=== PATIENT | female | born 1955 | race Caucasian/White ===

== ENCOUNTER 2018-03-06 15:24 | Observation (INO) | payer OTHER ==
--- NOTE | 2018-03-06 16:10 | ED ---
HPI Chest Pain - HPI Summary HPI Summary: This patient is a 62 year old F presenting to [facility] accompanied by a woman with a chief complaint of intermittent left-sided, pressure CP radiating to the left shoulder since yesterday. The patient rates the pain 8/10 in severity. Patient reports nausea, MALLOY, pain with breathing, cough, and increased need for sleep. Patient denies vomiting. PMHX diabetic, HLD. No PMHx cardiac problems, HTN. FHX cardiac problems. - History of Current Complaint Chief Complaint: EDChestPainROMI Time Seen by Provider: 03/06/18 15:45 Hx Obtained From: Patient Onset/Duration: Started Days Ago - 1 Timing: Intermittent, Lasting Hours - 2 Initial Severity: Moderate Current Severity: Moderate Pain Intensity: 8 Pain Scale Used: 0-10 Numeric Chest Pain Location: Mid Sternal, Left Anterior Chest Pain Radiates To:: Shoulder Character: Crushing Associated Signs and Symptoms: Positive: Chest Pain, Headaches, Shortness of Breath, Nausea, Nonproductive Cough. Negative: Vomiting - Allergy/Home Medications Allergies/Adverse Reactions: Allergies Allergy/AdvReac Type Severity Reaction Status Date / Time butorphanol [From Stadol] Allergy Airway Verified 03/06/18 16:42 Obstruction meperidine [From Demerol] Allergy Unknown Verified 03/06/18 16:42 Reaction Details prochlorperazine Allergy Shakes Verified 03/06/18 16:42 [From Compazine] sumatriptan [From Imitrex] Allergy Airway Verified 03/06/18 16:42 Obstruction Home Medications: Home Medications Insulin Glargine,Hum.rec.anlog [Lantus Solostar 5x3 ML PENS] 20 units SUBCUT BEDTIME 03/06/18 [History Confirmed 03/06/18] Lactobacillus Acidophilus [Probiotic Acidophilus] 1 each PO DAILY 03/06/18 [ History Confirmed 03/06/18] Omeprazole 20 mg PO DAILY 03/06/18 [History Confirmed 03/06/18] Pioglitazone HCl/Metformin HCl [Pioglitazone-Metformin 15-500] 1 tab PO BID 08/17 [History Confirmed 03/06/18] PMH/Surg Hx/FS Hx/Imm Hx Endocrine/Hematology History: Reports: Hx Diabetes GI History: Reports: Hx Gastroesophageal Reflux Disease - Surgical History Surgery Procedure, Year, and Place: cholecystectomy, hysterectomy, cervical fusion Infectious Disease History: No Infectious Disease History: Denies: Traveled Outside the [place] in Last 30 Days - Family History Known Family History: Positive: Cardiac Disease - Social History Alcohol Use: None Substance Use Type: Reports: None Smoking Status (MU): Never Smoked Tobacco Review of Systems Positive: Chest Pain - left, radiating to shoulder Positive: Shortness Of Breath, Cough Positive: Nausea. Negative: Vomiting Neurological: Other - increased need for sleep Positive: Headache All Other Systems Reviewed And Are Negative: Yes Physical Exam - Summary Physical Exam Summary: VITAL SIGNS: Reviewed. GENERAL: Patient is a well-developed and nourished female who is lying comfortable in the stretcher. Patient is not in any acute respiratory distress. HEAD AND FACE: No signs of trauma. No ecchymosis, hematomas or skull depressions. No sinus tenderness. EYES: PERRLA, EOMI x 2, No injected conjunctiva, no nystagmus. EARS: Hearing grossly intact. Ear canals and tympanic membranes are within normal limits. MOUTH: Oropharynx within normal limits. NECK: Supple, trachea is midline, no adenopathy, no JVD, no carotid bruit, no c- spine tenderness, neck with full ROM. CHEST: Symmetric, no tenderness at palpation LUNGS: Clear to auscultation bilaterally. No wheezing or crackles. CVS: Regular rate and rhythm, S1 and S2 present, no murmurs or gallops appreciated. ABDOMEN: Soft, non-tender. No signs of distention. No rebound no guarding, and no masses palpated. Bowel sounds are normal. EXTREMITIES: FROM in all major joints, no edema, no cyanosis or clubbing. NEURO: Alert and oriented x 3. No acute neurological deficits. Speech is normal and follows commands. SKIN: Dry and warm GCS: 15 Triage Information Reviewed: Yes Vital Signs On Initial Exam: Initial Vitals Temp Pulse Resp BP Pulse Ox 97.6 F 81 14 157/88 98 03/06/18 15:34 03/06/18 15:34 03/06/18 15:34 03/06/18 15:34 03/06/18 15:34 Vital Signs Reviewed: Yes Diagnostics - Vital Signs Vital Signs Temp Pulse Resp BP Pulse Ox 03/06/18 15:34 97.6 F 81 14 157/88 98 - Laboratory Result Diagrams: 03/06/18 16:36 03/06/18 16:36 Lab Statement: Any lab studies that have been ordered have been reviewed, and results considered in the medical decision making process. - Radiology CXR Radiology Interpretation Completed By: Radiologist Summary of Radiographic Findings: QUESTIONABLE APPEARANCE OF INNUMERABLE PUNCTATE PULMONARY NODULES CAN BE SEEN IN THE. SETTING OF SARCOID. ALTERNATIVELY THIS APPEARANCE COULD BE DUE TO MILD VASCULAR. CONGESTION. ED physician has reviewed this report - EKG 15:38 Cardiac Rate: NL - 67 bpm EKG Rhythm: Sinus Rhythm ST Segment: Normal 18:35 Cardiac Rate: NL - 93 bpm EKG Rhythm: Sinus Rhythm ST Segment: Normal Chest Pain Course/Dx - Course Assessment/Plan: This patient is a 62 year old F presenting to [facility] accompanied by a woman with a chief complaint of intermittent left-sided, pressure CP radiating to the left shoulder since yesterday. The patient rates the pain 8/10 in severity. Patient reports nausea, MALLOY, pain with breathing, cough, and increased need for sleep. Patient denies vomiting. PMHX diabetic, HLD. No PMHx cardiac problems, HTN. FHX cardiac problems. Blood work without any significant abnormality except for potassium level 3.3 which the patient was given potassium chloride. Glucose was 247 for which the patient was given IV fluids. Troponin is 0.00. Urinalysis is negative for UTI. In the ED course the patient was given aspirin, Lopressor, nitroglycerin. The patient reported that she had another episode of chest pain which we did a second EKG but she doesnt have any ST elevations and unchanged from previous EKG. Therefore I discussed the case with Dr. Rodriguez from the hospital services and she accepted the patient for admission. Patient is hemodynamically stable alert and oriented 3. - Chest Pain Differential Diagnosis/HQI/PQRI: Acute IA, ACS, Angina, CHF, Chest Wall, GI Disease - Diagnoses Provider Diagnoses: Chest pain - Provider Notifications Discussed Care Of Patient With: Olinda Rodriguez Time Discussed With Above Provider: 18:02 Instructed by Provider To: Admit As Inpatient Discharge - Sign-Out/Discharge Documenting (check all that apply): Patient Departure - admission - Discharge Plan Condition: Fair Disposition: ADMITTED TO [facility] Referrals: [facility] [Outside] - Billing Disposition and Condition Condition: FAIR Disposition: Admitted to [facility] - Attestation Statements Document Initiated by Scribe: Yes Documenting Scribe: Aamir Barros Provider For Whom Khrisibe is Documenting (Include Credential): Jorge Mcdaniels MD Scribe Attestation: I, Aamir Barros, scribed for Jorge Mcdaniels MD on 03/06/18 at 1856. Scribe Documentation Reviewed: Yes Provider Attestation: The documentation as recorded by the scribe, Aamir Barros accurately reflects the service I personally performed and the decisions made by me, Jorge Mcdaniels MD Status of Scribe Document: Viewed
[2018-03-06 16:49] LABS: Urine Appearance Clear; Urine Bilirubin Negative (Negative); Urine Blood Negative (Negative); Urine Color Yellow; Urine Glucose 3+(>=500 mg/dL) (Negative); Urine Ketones Trace (Negative); Urine Nitrite Negative (Negative); Urine Protein Negative (Negative); Urine Urobilinogen Negative (Negative)
[2018-03-06 16:58] LABS: ABS Basophils 0.1 10^3/ul (0-0.2); ABS Eosinophils 0 10^3/ul (0-0.6); ABS Lymphocytes 3.2 10^3/ul (1.0-4.8); ABS Monocytes 0.8 10^3/ul (0-0.8); ABS Neutrophils 4.3 10^3/ul (1.5-7.7); ABS Nucleated RBC 0 10^3/ul; Eosinophil % 0.5 %; Hematocrit 46 % (35-47); Hemoglobin 15.8 g/dl (12.0-16.0); Lymphocyte % 38.3 %; Mean Corpuscular HGB Conc 34 g/dl (31-36); Mean Corpuscular Hemoglobin 32 pg (27-31); Mean Corpuscular Volume 93 fL (80-97); Mean Platelet Volume 9.6 fL (7.4-10.4); Nucleated Red Blood Cells % 0.1; Platelet Count 258 10^3/ul (150-450); Red Blood Count 4.93 10^6/ul (4.00-5.40); Red Cell Distribution Width 13 % (10.5-15); White Blood Count 8.4 10^3/ul (3.5-10.8)
[2018-03-06 16:59] LABS: Activated Partial Thrombo Time 31.2 seconds (26.0-36.3)
[2018-03-06 17:02] LABS: Albumin 4.5 g/dL (3.2-5.2); Albumin/Globulin Ratio 1.6 (1-3); BUN/Creatinine Ratio 16.2 (8-20); Calcium 9.5 mg/dL (8.6-10.3); EGFR Non-African American 79.5 (>60); Globulin 2.9 g/dL (2-4); Magnesium 1.9 mg/dL (1.9-2.7); Potassium 3.3 mmol/L (3.5-5.0); Total Bilirubin 0.5 mg/dL (0.2-1.0); Total Protein 7.4 g/dL (6.4-8.9)
[2018-03-06] MEDS ORDERED: Potassium Chlor TAB* 20 MEQ TAB.ER PO ONE (17:35)
[2018-03-06 17:36] LABS: TSH (Thyroid Stimulating Horm) 1.26 mcIU/mL (0.34-5.60)
[2018-03-06] MEDS ORDERED: Metoprolol Tartrate TAB* 25 MG PO ONE (17:42)
[2018-03-06] MEDS ORDERED: Aspirin 81 mg CHEW TAB* 81 MG TAB.CHEW PO ONE (17:42)
[2018-03-06] MEDS: Nitroglycerin TAB 0.4 MG* 0.4 MG TAB SL ONE ×2 (18:11→18:36)
[2018-03-06] MEDS ORDERED: Acetaminophen TAB* 325 MG PO PRN (19:34)
[2018-03-06] MEDS ORDERED: Ondansetron INJ* 2 MG/ML VIAL IV PRN (19:34)
[2018-03-06] MEDS ORDERED: Dextrose 50% Syringe 50 ML* 25 GM/50 ML SYRINGE IV PUSH PRN (19:37)
[2018-03-06] MEDS ORDERED: Iodixanol* (CONTRAST) 320 MG/ML 100 ML SDV IV ONE (19:37)
[2018-03-06] MEDS ORDERED: Enoxaparin(*) 40 MG/0.4 ML SYR SUBCUT SCH (20:00)
[2018-03-06] MEDS ORDERED: Insulin GLARGINE(*) 1 UNITS UNIT SUBCUT SCH (20:00)
--- NOTE | 2018-03-06 22:43 | HP ---
HISTORY AND PHYSICAL: DATE OF ADMISSION: 03/06/18 PRIMARY CARE PROVIDER: None. ATTENDING PHYSICIAN: Dr. Kenny Munson * (dictated by May Levy NP) CHIEF COMPLAINT: Chest pain, radiating to the left shoulder and back. HISTORY OF PRESENT ILLNESS: Ms. Rosales is a 62-year-old female with past medical history of diabetes, GERD, and sarcoidosis, who presents to the emergency room today with sudden-onset chest pain. She reports that the pain came on suddenly this morning. There were no precipitating factors. She describes the pain as pressure radiating to the left shoulder and back. She reports this is worse with breathing as she has some associated nausea and diaphoresis as well as a headache. She also reports that the pain is worse with coughing and she does have a chronic cough of unknown origin. She rates the pain 8/10 as its worst. She denied any cardiac history though later on reported that she has had multiple stress tests in the past, the most recent of which being within the last 3 years at [facility]. She reports that there were no acute findings at that time. She also reports that she had a cardiac catheterization at [facility] in the last 5 to 10 years. There were no stents placed at that time and she was not able to verbalize the findings. In the emergency room, the patient had labs, which were unremarkable. She had a negative troponin as well as an EKG, which showed no ischemic changes. While in the emergency room, it was reported that she was walking to the bathroom with the assistance of a nurse. When she had chest pain with associated shortness of breath and diaphoresis, she was given a nitro tab at that time, which she reports did not relieve her symptom, in total she was given 2 doses of nitro, a dose of metoprolol, and a dose of aspirin in the emergency room. She does not report any relief on her symptom. Because of her chest pain, the hospitalist service was asked to evaluate for admission. PAST MEDICAL HISTORY: 1. Diabetes mellitus, type 2. 2. GERD. 3. Sarcoidosis. PAST SURGICAL HISTORY: 1. Hysterectomy. 2. Cholecystectomy. 3. Cervical spine fusion. 4. Appendectomy. 5. Right wrist surgery x3. MEDICATIONS: 1. Pioglitazone/metformin 15/500 one tab p.o. b.i.d. 2. Omeprazole 20 mg p.o. daily. 3. Probiotic 1 tab p.o. daily. 4. Lantus 20 units subcu at bedtime. ALLERGIES: BUTORPHANOL, MEPERIDINE, PROCHLORPERAZINE, and SUMATRIPTAN. FAMILY HISTORY: The patient reports a significant family history for heart disease. She reports that her mother has a defibrillator, she is not sure why, though her mother did have an episode of cardiac arrest and does have coronary artery disease. She also has diabetes. She reports that her father in the OR during a cardiac bypass surgery. SOCIAL HISTORY: The patient denies any tobacco or recreational drug use. She reports drinking alcohol a few times a year. She works as a cashier checker at a gas station and lives at home with her . Her , Sandra, would be her surrogate decision maker in the event she is unable to make her own decisions. REVIEW OF SYSTEMS: An 11-point review of systems was performed and all the pertinent positive and negative findings are in the HPI. All other systems are negative. PHYSICAL EXAMINATION GENERAL: Ms. Rosales is a well-developed, well-nourished, overweight white woman, lying in bed, in no acute distress. She appears her stated age. Her reports of pain do not appear consistent with her appearance. VITAL SIGNS: Temp 97.6, heart rate 85, respiratory rate 15, oxygen saturation 97 % on room air, blood pressure 154/79. HEENT: Head is atraumatic, normocephalic. Visual mclaughlin are grossly intact. Pupils are equal, round, and reactive to light and accommodation. Extraocular movements are intact. Oral mucous membranes are moist and without lesions. NECK: Full range of motion. Thyroid not palpable. Trachea midline. No lymphadenopathy. RESPIRATORY: Symmetrical chest expansion. No chest wall deformities. Lungs clear to auscultation throughout. No rhonchi, wheezes, or rubs. CARDIOVASCULAR: Regular rate and rhythm. S1, S2 present. No murmurs, rubs, or gallops. No JVD. ABDOMEN: Soft, nontender to palpation. Bowel sounds normoactive throughout. EXTREMITIES: Skin is warm and smooth bilaterally. No edema. No clubbing or cyanosis. Pedal pulses 2+ bilaterally. MUSCULOSKELETAL: Full range of motion. There is pain on palpation of the left upper back and left chest wall at approximately the second and third intercostal space and the fourth and fifth intercostal space. NEURO: Awake, alert, and oriented x4. Cranial nerves II through XII grossly intact. Moves all extremities. SKIN: Grossly intact without lesions. DIAGNOSTIC STUDIES/LAB DATA: WBC 8.4, RBC 4.93, hemoglobin 15.8, hematocrit 46 , platelets 258. PTT is 31.2, D-dimer less than 200. Sodium 136, potassium 3.3 , chloride 103, carbon dioxide 25, BUN 12, creatinine 0.74, glucose 247, lactic acid 2.0, magnesium 1.9. CPK 140, CK-MB 1.6. Troponin 0.00. BNP 15. Urinalysis remarkable for glucose and trace ketones. First EKG shows normal sinus rhythm with a rate of 67, QTc 429, no ischemic changes. Second EKG shows normal sinus rhythm with a rate of 94, QTc 476, no ischemic changes. Chest x-ray reads as questionable appearance of innumerable punctate pulmonary nodules can be seen in the setting of sarcoid. Alternatively, this appearance could be due to mild vascular congestion. Chest CTA results pending. ASSESSMENT AND PLAN: Ms. Rosales is a 62-year-old female with past medical history of diabetes, gastroesophageal reflux disease, and sarcoidosis, who presents to the emergency room today with chest pain and so far has had unremarkable workup. The patient will be admitted to observation for: 1. Chest pain, rule out myocardial infarction. The patient does not have any EKG changes. Her first troponin was 0.00. She will have two more troponins as well as EKGs at those times. I will also repeat an EKG tomorrow morning. I have checked a CTA to rule out pulmonary embolism though I think that is very low in the differential. Her PRICILLA score is a 2 because of family history in presence of severe chest pain. The patient reports having a stress test a few years ago at [facility]. I will request records from [facility] for her most recent stress test and cardiac catheterization, although I do think it is wolfe to repeat a stress test at this point. The patient reports that she has not been able to complete an exercise stress test in the past, so I will order a nuclear stress test. She will be n.p.o. after midnight for this. I think that costochondritis could be high on the differential due to the reproducibility of her chest pain and the fact that it is worse with deep breathing and coughing. I have initially ordered a lipid panel to be checked tomorrow morning. 2. Diabetes. The patient's glucose is elevated in the emergency room at [facility], I will continue her usual 20 units of Lantus at bedtime. We will hold her pioglitazone/metformin at this point. I have placed her on fingerstick a.c., h.s. with sliding scale insulin. 3. Gastroesophageal reflux disease, I will continue her omeprazole. 4. Sarcoidosis. The patient reports that she has previously seen a wet primer powder blender at [place], though she has not seen anyone in the last 2 to 3 years. She is stable at this time, although she would likely follow up with her wet primer powder blender after discharge. 5. Fluids, electrolytes, and nutrition. The patient does not require any fluid resuscitation at this time. She did have a slightly low potassium at 3.3 in the emergency room and was given 40 mEq of potassium chloride already. I have ordered a heart healthy diet and she will be n.p.o. after midnight for her stress test. 6. Code status. The patient will be a full code. 7. DVT prophylaxis. Based on the DVT Risk Assessment, the patient scores a 3 putting her on a high risk. I have ordered Lovenox. TIME SPENT: Approximately 60 minutes was spent on this admission, greater than half of that time spent [id number] with the patient and her family obtaining my history, performing my physical exam, and reviewing the plan of care. This case has been reviewed with my attending, Dr. Munson, who is in agreement with the plan of care. MAY LEVY, FIELD SUPERVISOR [id number]/[facility] #: [id number] MATHEW
[2018-03-07 06:38] LABS: ABS Basophils 0.1 10^3/ul (0-0.2); ABS Eosinophils 0.1 10^3/ul (0-0.6); ABS Lymphocytes 3.1 10^3/ul (1.0-4.8); ABS Monocytes 0.8 10^3/ul (0-0.8); ABS Neutrophils 2.5 10^3/ul (1.5-7.7); ABS Nucleated RBC 0 10^3/ul; Eosinophil % 1.3 %; Hematocrit 44 % (35-47); Hemoglobin 14.8 g/dl (12.0-16.0); Lymphocyte % 47.6 %; Mean Corpuscular HGB Conc 34 g/dl (31-36); Mean Corpuscular Hemoglobin 32 pg (27-31); Mean Corpuscular Volume 93 fL (80-97); Nucleated Red Blood Cells % 0.1; Platelet Count 224 10^3/ul (150-450); Red Blood Count 4.67 10^6/ul (4.00-5.40); Red Cell Distribution Width 13 % (10.5-15); White Blood Count 6.5 10^3/ul (3.5-10.8)
[2018-03-07 06:59] LABS: BUN/Creatinine Ratio 19.4 (8-20); Calcium 8.9 mg/dL (8.6-10.3); EGFR Non-African American 89.2 (>60); HDL Cholesterol 34.9 mg/dL; Potassium 3.6 mmol/L (3.5-5.0)
[2018-03-07] MEDS: Insulin LISPRO* 1 UNITS UNIT SUBCUT SCH ×2 (07:39→14:03)
[2018-03-07] MEDS ORDERED: Omeprazole CAP (NF) 20 MG CAP.DR PO SCH (09:00)
[2018-03-07] MEDS ORDERED: Regadenoson* 0.4 MG/5 ML SYRINGE ONE (09:30)
[2018-03-07] MEDS ORDERED: Aminophylline IV* 25 MG/ML 10 ML VIAL ONE (09:35)
[2018-03-07 12:09] VITALS: BP 128/68
[2018-03-07] MEDS ORDERED: Atorvastatin* 10 MG TAB PO SCH (17:00)
--- NOTE | 2018-03-07 23:55 | DS ---
CC: Anh Richey NP * DISCHARGE SUMMARY: DATE OF ADMISSION: 03/06/18 DATE OF DISCHARGE: 03/07/18 PRIMARY CARE PROVIDER: Anh Richey NP ATTENDING PHYSICIAN: Dr. Olinda Rodriguez * (dictated by May Levy NP) PRIMARY DIAGNOSIS: Chest pain, musculoskeletal versus sarcoidosis. SECONDARY DIAGNOSES: 1. Diabetes mellitus type 2. 2. Gastroesophageal reflux disease. STUDIES WHILE IN THE HOSPITAL: 1. EKG on 03/06/18 showed normal sinus rhythm with a rate of 67, QTc 429. No ischemic changes. 2. Chest x-ray on 03/06/18 reads as questionable appearance of innumerable punctate pulmonary nodules can be seen in the setting of sarcoid. Alternatively , this appearance could be due to mild vascular congestion. 3. EKG on 03/06/18 shows normal sinus rhythm with a rate of 94, QTc 476. No ischemic changes. 4. Chest CTA on 03/06/18 reads as borderline bilateral hilar adenopathy, which is nonspecific. Status post cholecystectomy. Fatty infiltration of the liver. Slight interstitial prominence with minimal bibasilar infiltrates or atelectasis. Subpleural right middle lobe nodule adjacent to the minor fissure measuring 4 mm for patient at low risk (minimal or absent history of smoking and of other known risk factors). No routine followup is indicated. For patients at high risk (history of smoking or of other known risk factors) consider optional CT at 12 months. Otherwise, negative CTA chest. No pulmonary embolism as identified. 5. EKG on 03/06/18 shows sinus bradycardia with a rate of 54, QTc 417. 6. EKG on 03/07/18 shows normal sinus rhythm with a rate of 60, QTc 414. No ischemic changes. 7. EKG on 03/07/18 shows normal sinus rhythm with a rate of 60, QTc 422. No ischemic changes. 8. Nuclear cardiac stress test on 03/07/18 reads as no evidence for infarct or ischemia, low risk stress test. HISTORY OF PRESENT ILLNESS AND HOSPITAL COURSE: Ms. Rosales is a 62-year-old female with a past medical history of diabetes, GERD, and sarcoidosis, who presented to the emergency room on 03/06/18 with complaints of chest pain. Please see the history and physical by myself for compete summary of the events leading up to this hospitalization. In short, the patient woke in the morning with chest pain, which she rated an 8/10. This chest pain had no precipitating or relieving factors. She noted that the pain was worse with coughing and with deep breathing. She reported that she had had prior stress test and a prior cardiac catheterization at [facility], though was not sure of the results of those. In the emergency room, she was noted to have a negative troponin and had no EKG changes. While in the emergency room, she was ambulating with the nurse and was noted to be significantly short of breath and diaphoretic in addition to her chest pain. She was admitted by the hospitalist service for chest pain, rule out myocardial infarction. The patient had 2 additional troponins, which were 0.00. She had EKGs with each of those troponins, which did not show any acute changes. She had an uneventful night. This morning, she reports that the pain is somewhat improved. She still has significant pain with coughing and with palpation on the left chest around the fifth intercostal space. She did have a stress test this morning, which indicated she was low risk. She had a lipid panel this morning, which showed triglycerides of 183, total cholesterol of 209, LDL of 138 , and HDL of 34. Because of her elevated LDL and risk factors, the patient was started on low-dose aspirin and a statin. Although the cause of her chest pain is still unknown, this potentially could be musculoskeletal in nature as the pain is very localized and worse with coughing and palpation. This could represent a muscle strain or costochondritis. I have advised the patient that she may take ibuprofen to help manage her pain. It is possible that this pain could be secondary to her sarcoidosis as it is associated with shortness of breath. The patient reports that she has not seen a manager lan in at least 2 years and has not been treated for sarcoidosis. I have advised she should follow up with a manager lan for further evaluation. There are no cardiac concerns for chest pain at this time. The patient reports feeling well and is anxious to return home. Ms. Rosales is stable for discharge today. Vital signs are as follows: Temp 97.6, heart rate 56, respiratory rate 16, oxygen saturation 97% on room air, blood pressure 128/68. DISCHARGE MEDICATIONS: New medications: 1. Aspirin 81 mg p.o. daily. 2. Atorvastatin 10 mg p.o. daily. Continued medications: 1. Lantus 20 units subcu at bedtime. 2. Probiotic 1 tab p.o. daily. 3. Omeprazole 20 mg p.o. daily. 4. Pioglitazone/metformin 15-500 mg 1 tab p.o. b.i.d. DISCHARGE PLAN: Ms. Rosales will be discharged to home. Activity will be as tolerated. Diet should be heart healthy. Medications as noted above, the patient has been started on daily aspirin and statin due to her risk factors for coronary artery disease and her elevated LDL. She can continue her other usual medications. I have also advised her that she may take ibuprofen for her chest pain. She should follow up with her primary care provider in 4 to 7 days. Additionally as noted above, I have advised her that she should follow up with a manager lan. She reports that she has previously seen a manager lan at [place] and she would like to return there. The patient has been advised to return to the emergency room for any worsening of symptoms, shortness of breath, lightheadedness, dizziness, chest discomfort, high fevers, chills, night sweats, loss of consciousness, or any other worrisome signs or symptoms. This is a summarized report of a complex medical history and hospital stay. For further details, please see the entire medical record. TIME SPENT: Approximately 40 minutes were spent on this discharge. MAY LEVY NP [id number]/[facility] #: [id number] MATHEW
[2018-03-08] MEDS ORDERED: Aspirin 81 mg CHEW TAB* 81 MG TAB.CHEW PO SCH (09:00)
== END 2018-03-07 14:00 | disposition home or self-care (01) ==
LOC: ED 15:24 → MEDTELE 19:34
PROVIDERS: ADMIT Nurse Practitioner Family; ATTEND Internal Medicine
DX: R07.9 Chest pain, unspecified (principal); D86.9 Sarcoidosis, unspecified; E11.9 Type 2 diabetes mellitus without complications; K21.9 Gastro-esophageal reflux disease without esophagitis; Z79.82 Long term (current) use of aspirin; R51 Headache; R06.02 Shortness of breath; R11.10 Vomiting, unspecified; Z79.4 Long term (current) use of insulin
CPT/HCPCS: 36415; 71046; 71275; 78452; 80048; 80053; 80061; 81003; 82550; 82553; 83605; 83735; 83880; 84443; 84484; 85025; 85379; 85730; 90472; 90686; 93005; 93017; 96372; 96375; 99285; A9270-GY; A9502; G0008; G0378; J0280; J1650; J2785; Q9967

== ENCOUNTER 2021-06-03 04:13 | Observation (INO) ==
[2021-06-03] MEDS ORDERED: Ondansetron 4 mg VIAL 2 MG/ML 2 ml VIAL IV ONE (04:25)
[2021-06-03] MEDS ORDERED: Famotidine IV 10 MG/ML 2 ml VIAL (20 mg) IV SLOW PU ONE (04:25)
[2021-06-03] MEDS ORDERED: Lactated Ringers 1000 ml BAG 2,000 ML IV ONE (04:25)
[2021-06-03 04:42] LABS: ABS Basophils 0.1 10^3/ul (0-0.2); ABS Lymphocytes 1.5 10^3/ul (1.0-4.8); ABS Monocytes 1.1 10^3/ul (0-0.8); ABS Neutrophils 5.5 10^3/ul (1.5-7.7); Eosinophil % 0.1 %; Hematocrit 43 % (35-47); Hemoglobin 14.7 g/dL (12.0-16.0); Mean Corpuscular HGB Conc 35 g/dL (31-36); Mean Corpuscular Hemoglobin 32 pg (27-31); Mean Corpuscular Volume 93 fL (80-97); Mean Platelet Volume 9.3 fL (7.4-10.4); Nucleated Red Blood Cells % 0.1; Platelet Count 214 10^3/uL (150-450); Red Blood Count 4.58 10^6 /uL (3.70-4.87); Red Cell Distribution Width 14 % (10-15); White Blood Count 8.1 10^3/uL (3.5-10.8)
[2021-06-03 04:47] LABS: INR 1.18 (0.86-1.15)
[2021-06-03 05:00] LABS: Albumin/Globulin Ratio 1.3 (1-3); Calcium 9.2 mg/dL (8.6-10.3); Globulin 3.2 g/dL (2-4); Potassium 3.8 mmol/L (3.5-5.0); Total Bilirubin 0.8 mg/dL (0.2-1.0); Total Protein 7.2 g/dL (6.4-8.9); eGFR CKD-EPI 94.3 (>60)
[2021-06-03] MEDS ORDERED: Dexamethasone IV 4 MG/ML 5 ML VIAL (20 MG) IVPB ONE (05:48)
[2021-06-03] MEDS ORDERED: Iodixanol (CONTRAST) 320 MG/ML 100 ML SDV IV ONE (05:57)
[2021-06-03] MEDS: Albuterol/Ipratropium NEB.SOL (2.5/0.5 MG) 3 ML NEB.SOLN INH SCH ×4 (06:00→22:26)
[2021-06-03 06:10] LABS: High Sensitivity Troponin 1 Hr 3 pg/mL (<15)
[2021-06-03] MEDS ORDERED: Magnesium Sulfate 2 gm BAG 2 GM/50 ML BAG IVPB ONE (07:16)
[2021-06-03] MEDS ORDERED: guaiFENesin 100 mg/5 ml LIQ unit dose cup PO ONE (07:21)
[2021-06-03 08:03] LABS: Urine Appearance Clear; Urine Bilirubin Negative (Negative); Urine Blood Negative (Negative); Urine Color Yellow; Urine Glucose 3+(>=500 mg/dL) (Negative); Urine Ketones 2+ (Negative); Urine Nitrite Negative (Negative); Urine Protein Negative (Negative); Urine Specific Gravity 1.036 (1.002-1.030); Urine Urobilinogen Negative (Negative)
[2021-06-03 08:08] LABS: Urine Bacteria Absent (Absent); Urine Red Blood Cell Trace(0-2/hpf) (Absent); Urine Squamous Epithelial Cell Present (Absent); Urine White Blood Cell Trace(0-5/hpf) (Absent)
[2021-06-03] MEDS ORDERED: Dextrose 50% Syringe 50 ml 25 GM/50 ML SYRINGE IV PUSH PRN ×2 (11:11→11:12)
[2021-06-03] MEDS: Enoxaparin 40 MG/0.4 ML SYR SUBCUT SCH (13:11)
[2021-06-03] MEDS: Lidocaine PATCH 5% PATCH TRANSDERM SCH (17:41)
[2021-06-03] MEDS: Albuterol HFA INHALER 8 gm MDI INH SCH ×2 (19:27→23:05)
[2021-06-03] MEDS ORDERED: Insulin GLARGINE 100 un/ml 10 ml VIAL SUBCUT SCH (21:00)
[2021-06-04] MEDS: Albuterol HFA INHALER 8 gm MDI INH SCH ×4 (02:31→15:33)
[2021-06-04 05:17] LABS: Hematocrit 39 % (35-47); Hemoglobin 13.4 g/dL (12.0-16.0); Lymphocyte % 17.2 %; Mean Corpuscular HGB Conc 35 g/dL (31-36); Mean Corpuscular Hemoglobin 32 pg (27-31); Mean Corpuscular Volume 93 fL (80-97); Mean Platelet Volume 9.3 fL (7.4-10.4); Platelet Count 196 10^3/uL (150-450); Red Blood Count 4.16 10^6 /uL (3.70-4.87); Red Cell Distribution Width 14 % (10-15)
[2021-06-04 05:37] LABS: Calcium 8.5 mg/dL (8.6-10.3); Potassium 4.4 mmol/L (3.5-5.0); eGFR CKD-EPI 79.3 (>60)
[2021-06-04] MEDS: Lidocaine PATCH 5% PATCH TRANSDERM SCH (09:07)
[2021-06-04] MEDS: Enoxaparin 40 MG/0.4 ML SYR SUBCUT SCH (11:23)
[2021-06-04 11:29] VITALS: BP 119/65
== END 2021-06-04 15:00 | disposition home or self-care (01) ==
LOC: ED 04:13 → INTOOBSV 09:52 → EDHOLD 09:52 → SUATTDRO 09:52 → EDHOLD 11:36 → MEDTELE 12:33
PROVIDERS: ADMIT Internal Medicine; ATTEND Internal Medicine

== ENCOUNTER 2021-08-13 10:09 | Inpatient (IN) ==
[2021-08-13] MEDS ORDERED: Ondansetron 4 mg VIAL 2 MG/ML 2 ml VIAL IV ONE (12:45)
[2021-08-13 13:37] LABS: ABS Lymphocytes 2.6 10^3/ul (1.0-4.8); ABS Monocytes 0.7 10^3/ul (0-0.8); ABS Neutrophils 5.3 10^3/ul (1.5-7.7); Eosinophil % 0.3 %; Hematocrit 47 % (35-47); Hemoglobin 15.9 g/dL (12.0-16.0); Mean Corpuscular HGB Conc 34 g/dL (31-36); Mean Corpuscular Hemoglobin 32 pg (27-31); Mean Corpuscular Volume 94 fL (80-97); Mean Platelet Volume 9.6 fL (7.4-10.4); Platelet Count 266 10^3/uL (150-450); Red Blood Count 4.93 10^6 /uL (3.70-4.87); Red Cell Distribution Width 13 % (10-15); White Blood Count 8.7 10^3/uL (3.5-10.8)
[2021-08-13 13:49] LABS: Activated Partial Thrombo Time 31.8 seconds (26.0-38.0); INR 1.05 (0.86-1.15)
[2021-08-13 13:58] LABS: Albumin 4.4 g/dL (3.2-5.2); Albumin/Globulin Ratio 1.3 (1-3); Calcium 10.1 mg/dL (8.6-10.3); Globulin 3.3 g/dL (2-4); Potassium 4.2 mmol/L (3.5-5.0); Total Bilirubin 0.7 mg/dL (0.2-1.0); Total Protein 7.7 g/dL (6.4-8.9); eGFR CKD-EPI 95.9 (>60)
[2021-08-13] MEDS ORDERED: Dextrose 50% Syringe 50 ml 25 GM/50 ML SYRINGE IV PUSH PRN (18:41)
[2021-08-13] MEDS ORDERED: Albuterol HFA INHALER 8 gm MDI INH PRN (18:43)
[2021-08-13] MEDS ORDERED: Polyethylene Glycol 3350 17 GM PACKET PO PRN (19:43)
[2021-08-13] MEDS ORDERED: Senna TAB 8.6 mg TAB PO PRN (19:43)
[2021-08-13] MEDS: Morphine 2 MG/ML SYRINGE IV PRN (21:11)
[2021-08-13] MEDS ORDERED: Heparin 5000 UNITS/ML 1 mL VIAL SUBCUT SCH (22:00)
[2021-08-14] MEDS: Morphine 2 MG/ML SYRINGE IV PRN ×3 (00:15→07:09)
[2021-08-14] MEDS ORDERED: NS 0.9% 1000 ml BAG 1,000 ML IV SCH (04:00)
[2021-08-14 05:52] LABS: Urine Appearance Cloudy; Urine Color Yellow
[2021-08-14 05:53] LABS: Urine Specific Gravity 1.043 (1.002-1.030)
[2021-08-14 05:54] LABS: Urine Bilirubin Negative (Negative); Urine Blood Negative (Negative); Urine Glucose 3+(>=500 mg/dL) (Negative); Urine Ketones 1+ (Negative); Urine Nitrite Negative (Negative); Urine Protein 1+(30 mg/dL) (Negative); Urine Urobilinogen N (Negative); Urine pH 5 (5-9)
[2021-08-14 06:01] LABS: Urine Bacteria 1+ (Absent); Urine Red Blood Cell 3+(>10/hpf) (Absent); Urine Squamous Epithelial Cell Present (Absent); Urine White Blood Cell 3+(>20/hpf) (Absent)
[2021-08-14 06:08] LABS: ABS Monocytes 0.8 10^3/ul (0-0.8); ABS Neutrophils 6.1 10^3/ul (1.5-7.7); Eosinophil % 0.1 %; Hematocrit 42 % (35-47); Hemoglobin 14.1 g/dL (12.0-16.0); Lymphocyte % 22.3 %; Mean Corpuscular HGB Conc 33 g/dL (31-36); Mean Corpuscular Hemoglobin 32 pg (27-31); Mean Corpuscular Volume 96 fL (80-97); Mean Platelet Volume 9.8 fL (7.4-10.4); Nucleated Red Blood Cells % 0.1; Platelet Count 207 10^3/uL (150-450); Red Blood Count 4.43 10^6 /uL (3.70-4.87); Red Cell Distribution Width 13 % (10-15); White Blood Count 8.9 10^3/uL (3.5-10.8)
[2021-08-14 06:23] LABS: INR 1.12 (0.86-1.15)
[2021-08-14 06:28] LABS: Potassium 4.3 mmol/L (3.5-5.0); eGFR CKD-EPI 94.3 (>60)
[2021-08-14] MEDS ORDERED: HYDROmorphone 0.5 MG/0.5 ML SYRINGE IV SLOW PU ONE (08:40)
[2021-08-14] MEDS ORDERED: Orphenadrine Citrate INJ 30 mg/ml 2 ml VIAL (60 mg) IV ONE (08:41)
[2021-08-14] MEDS ORDERED: Dexamethasone IV 4 MG/ML VIAL 1 ml VIAL IV SLOW PU ONE (15:28)
[2021-08-14] MEDS ORDERED: Buffered Lidocaine 1% SYRIN 1 ml INTRADERM ONE ×2 (15:28→17:12)
[2021-08-14] MEDS ORDERED: Lactated Ringers 1000 ml BAG 1,000 ML IV SCH ×2 (16:00→18:00)
[2021-08-14] MEDS ORDERED: HYDROcodone/ACETAMIN 5/325 mg TAB PO PRN (17:12)
[2021-08-14] MEDS ORDERED: fentaNYL 100 mcg/2 ml 50 MCG/ML VIAL IV PRN (17:12)
[2021-08-14] MEDS ORDERED: Ondansetron 4 mg VIAL 2 MG/ML 2 ml VIAL IV PRN (17:12)
[2021-08-14] MEDS ORDERED: Naloxone 0.4 mg VIAL 0.4 mg/ml 1 ml VIAL IV PRN (17:12)
[2021-08-14] MEDS ORDERED: Metoclopramide 5 MG/ML VIAL (10 mg) IV PRN (17:12)
[2021-08-14] MEDS ORDERED: ceFAZolin 2 GM PREMIX 2 GM/50 ML BAG ONE (17:28)
[2021-08-14] MEDS ORDERED: fentaNYL 100 mcg/2 ml 50 MCG/ML VIAL ONE ×4 (17:43→21:25)
[2021-08-14] MEDS ORDERED: Lidocaine 2% PF 5 ML VIAL ONE (17:43)
[2021-08-14] MEDS ORDERED: Propofol 10 MG/ML 20 ML BTL ONE (17:43)
[2021-08-14] MEDS ORDERED: Midazolam 2 mg/2 ml VIAL 1 mg/ml 2 ml VIAL (2 mg) ONE (17:43)
[2021-08-14] MEDS ORDERED: Dexamethasone IV 4 MG/ML VIAL 1 ml VIAL ONE (17:43)
[2021-08-14] MEDS ORDERED: Ondansetron 4 mg VIAL 2 MG/ML 2 ml VIAL ONE ×2 (17:43→21:26)
[2021-08-14] MEDS ORDERED: Desflurane 240 ML INH ONE (19:09)
[2021-08-14] MEDS ORDERED: Metoclopramide 5 MG/ML VIAL (10 mg) ONE (21:26)
[2021-08-14] MEDS ORDERED: HYDROcodone/ACETAMIN 5/325 mg TAB ONE (21:26)
[2021-08-15] MEDS: ceFAZolin 1 GM X 3 DOSES POST-OP Q8H (AddVan) IVPB SCH ×3 (02:57→17:44)
[2021-08-15] MEDS: Magnesium Hydroxide LIQ 30 ML UDC PO PRN (08:21)
[2021-08-15] MEDS ORDERED: Enoxaparin 40 MG/0.4 ML SYR SUBCUT SCH (12:00)
[2021-08-15] MEDS ORDERED: Insulin GLARGINE 100 un/ml 10 ml VIAL SUBCUT SCH (21:00)
[2021-08-16 08:23] VITALS: BP 145/76
[2021-08-16] MEDS: Magnesium Hydroxide LIQ 30 ML UDC PO PRN (08:57)
== END 2021-08-16 12:45 | disposition home or self-care (01) | DRG 494 ==
LOC: ED 10:09 → SUATTDRO 19:04 → EDHOLD 19:04 → SSU 19:51
PROVIDERS: ADMIT Hospitalist; ATTEND Student in an Organized Health Care Education/Training Program